=== PATIENT | female | born 1995 | race Two or more races ===

== ENCOUNTER 2022-09-28 19:28 | Emergency (ER) | payer MEDICAID ==
[~2022-09-28] VITALS: Ht 167.6 cm; Wt 122.0 kg
[2022-09-28] MEDS ORDERED: METHYLPREDNISOLONE SOD SUCC 125 MG/2 ML VIAL IM STA (19:56)
[2022-09-28] MEDS ORDERED: EPIN0.3P3 IM (19:58)
[2022-09-28] MEDS ORDERED: ONDANSETRON 4MG ODT PO ONE (20:00)
[2022-09-28] MEDS ORDERED: DIPHENHYDRAMINE 50MG/ML VIAL IM ONE (20:00)
[2022-09-28] MEDS ORDERED: FAMOTIDINE 20MG TABLET PO ONE (20:00)
[2022-09-28 21:07] VITALS: BP 143/82
[2022-09-28] MEDS ORDERED: P20 MT (21:43)
== END 2022-09-28 22:39 | disposition home or self-care (01) ==
LOC: ER 19:28
DX: T78.1XXA Other adverse food reactions, not elsewhere classified, initial encounter (principal); R22.0 Localized swelling, mass and lump, head; J45.901 Unspecified asthma with (acute) exacerbation; Z91.018 Allergy to other foods; X58.XXXA Exposure to other specified factors, initial encounter
CPT/HCPCS: 93005; 96372; 99284; J1200; J2930; Q0162